=== PATIENT | female | born 1990 | race Caucasian/White ===

== ENCOUNTER 2022-07-03 18:14 | Emergency (ER) | payer OTHER, SELFPAY ==
[2022-07-03 18:16] VITALS: BP 128/79; PULSE 103; RESP 14; TEMP 36.7; O2SAT 99
--- NOTE | 2022-07-03 18:41 | ED.BACK ---
HPI - Back Pain/Injury General Chief Complaint: Back Pain/Injury Stated Complaint: neck stiffness, back Time Seen by Provider: 07/03/22 18:26 History of Present Illness HPI Narrative: 31-year-old female presents the emergency room with sudden onset of atraumatic neck and low back pain she states that she woke up this morning with stiff neck and was unable to look to her right. She said that throughout the day she started experiencing right lower back pain that radiated into her right lower leg. States the pain was so severe that she was unable to walk. Denies any saddle anesthesia, loss or changes of bowel bladder habits. Related Data Home Medications Medication Instructions Recorded Confirmed levothyroxine 150 mcg capsule 150 mcg PO DAILY 05/18/22 sertraline 150 mg capsule 150 mg PO DAILY 05/18/22 Allergies Allergy/AdvReac Type Severity Reaction Status Date / Time amoxicillin Allergy Intermediate Hives Verified 07/03/22 18:22 Review of Systems Review of Systems: CONSTITUTIONAL: Denies fever, chills, or sweats. EYES: Denies visual changes, redness, or discharge. ENT: Denies rhinorrhea, congestion, sore throat, or otalgia. CARDIOVASCULAR: Denies chest pain, palpitations, or edema. RESPIRATORY: Denies cough or dyspnea. GASTROINTESTINAL: Denies abdominal pain, nausea, vomiting, or diarrhea. GENITOURINARY: Denies dysuria or hematuria. SKIN: Denies rash or itching. MUSCULOSKELETAL: Reports low back pain, neck pain NEUROLOGIC: Denies headache, numbness, dizziness, or weakness. PSYCHIATRIC: Denies anxiety or depression. PMFSH Past Medical History Medical History Anxiety Headache History of Graves' disease History of radioactive iodine thyroid ablation 2012 Migraine Surgical History Surgical History [place] teeth removed Family History Family History Mother Depression Sibling Depression Grandparent Depression Lung cancer Alcoholism Exam Narrative: GENERAL: Well-appearing, well-nourished, no physical limitations, and in no acute distress. HEAD: Normocephalic, atraumatic. EYES: Conjunctivae normal, PERRLA and EOMI. NECK: Supple. CHEST: Clear to auscultation. No respiratory distress. No wheezes rales or rhonchi. No tenderness. HEART: Regular rate and rhythm. No murmur heard. Normal peripheral pulses. BACK: No cervical/thoracic/lumbar tenderness, step-offs, bony abnormality; tenderness to the superior and lateral sides of the right trapezius muscle, tenderness to the right thoracolumbar fascia, positive SLE to right lower extremity. Neurovascular is intact distally EXTREMITIES: Normal range of motion. No edema. No clubbing or cyanosis SKIN: Warm, dry, no rash. No noted wounds NEURO: No focal deficits. Alert and oriented x3. MAEW. CN's II-XI intact bilaterally, normal gait PSYCH: Cooperative. Normal mood and affect. Course Vital Signs Vital signs: Vital Signs Temperature 36.7 C 07/03/22 18:16 Pulse Rate 103 H 07/03/22 18:16 Respiratory Rate 14 07/03/22 18:16 Blood Pressure 128/79 07/03/22 18:16 Pulse Oximetry 99 07/03/22 18:16 Oxygen Delivery Room Air 07/03/22 18:16 Temperature 36.7 C 07/03/22 18:16 Pulse Rate 103 H 07/03/22 18:16 Respiratory Rate 14 07/03/22 18:16 Blood Pressure 128/79 07/03/22 18:16 Pulse Oximetry 99 07/03/22 18:16 Oxygen Delivery Room Air 07/03/22 18:16 Discharge Plan Discharge Clinical Impression: Acute neck pain, Low back pain Patient Disposition: Home, Self-Care Condition: Stable Instructions: Antibiotic Form, Back Pain (ED) Additional Instructions: Take medications as prescribed. Recommend applying heat to affected areas. Also recommend getting a pulsating massage device, and using for 5 to 10 minutes at a time as tolerated. May also supplemen
== END 2022-07-03 19:03 | disposition home or self-care (01) ==
PROVIDERS: Emergency Provider Nurse Practitioner Family; PCP Family Medicine
DX: M54.2 Cervicalgia (principal); M54.50 Low back pain, unspecified; F41.9 Anxiety disorder, unspecified
CPT/HCPCS: 96372; 99283; J1100

== ENCOUNTER 2024-07-04 10:26 | Outpatient (CLI) | payer OTHER, SELFPAY ==
[2024-07-04 10:52] LABS: Basophils Percent Auto 0.5 % (0.2-1.2); Eosinophils Absolute Auto 0.1 K/mm3 (0-0.3); Eosinophils Percent Auto 0.7 % (0-4.4); Hematocrit 40.2 % (37.0-47.0); Hemoglobin 13.8 g/dL (12.0-15.0); Immature Granulocyte Absolute 0.03 K/mm3 (0.00-0.031); Immature Granulocyte Percent A 0.3 % (0-0.5); Lymphocytes Absolute Auto 1.91 K/mm3 (0.9-3.2); Lymphocytes Percent Auto 21.6 % (18.3-44.2); Mean Corpuscular HGB Conc 34.3 g/dl (32-36); Mean Corpuscular Hemoglobin 30.9 pg (26-34); Mean Corpuscular Volume 89.9 fl (80-100); Mean Platelet Volume 9.6 fl (7.4-10.4); Monocytes Absolute Auto 0.5 K/mm3 (0.1-0.6); Monocytes Percent Auto 5.2 % (2.6-8.5); Neutrophils Absolute Auto 6.4 K/mm3 (1.3-6.7); Neutrophils Percent Auto 71.7 % (45.5-73.1); Platelet Count Result 277 k/mm3 (150-375); Red Blood Count 4.47 M/mm3 (4.2-5.4); Red Cell Distribution Width 13.7 % (11.5-14.5); White Blood Count 8.9 K/mm3 (4.5-10.0)
[2024-07-04 12:15] LABS: Vitamin D 25 Hydroxy 27.1 ng/mL
[2024-07-04 12:28] LABS: Thyroid Stimulating Hormone Reflex 0.262 uIU/mL (0.465-4.68)
[2024-07-04 13:20] LABS: Hemoglobin A1C 6.9 % (<5.7)
[2024-07-04 14:59] LABS: Free T4 Free Thyroxine Reflex 1.73 ng/dL (0.78-2.19)
[2024-07-04 16:28] LABS: Total Triiodothyronine (T3) 1.03 NG/ML (0.97-1.69)
[2024-07-10 02:43] LABS: Progesterone 6.5 ng/mL
[2024-07-10 03:19] LABS: DHEA-Sulfate 250 mcg/dL (19-237); FSH 3.3 mIU/mL; LH 5.4 mIU/mL; Prolactin 4.9 ng/mL
[2024-07-10 11:18] LABS: Testosterone Free 4.8 pg/mL (0.1-6.4); Testosterone Total 38 ng/dL (2-45)
== END 2024-07-04 10:27 | disposition home or self-care (01) ==
PROVIDERS: PCP Family Medicine; Visit Provider Nurse Practitioner Obstetrics & Gynecology
DX: L68.0 Hirsutism (principal)
CPT/HCPCS: 36415; 82306; 82627; 83001; 83002; 83036; 83498; 83525; 84144; 84146; 84402; 84403; 84439; 84443; 84480; 85025

== ENCOUNTER 2025-10-31 12:39 | Emergency (ER) | payer OTHER, SELFPAY ==
--- NOTE | ~2025-10-31 | CT_ITS ---
EXAMINATION: CT brain wo con COMPARISON: None HISTORY: COELLO TECHNIQUE: Axial images were obtained through the brain without IV contrast. CT scan performed using dose optimization techniques including the following automated exposure control; adjustment of mA and/or kV; use of iterative reconstruction technique. Automatic exposure control was used to reduce radiation dose. Permanent radiation dose record is archived to PACS. FINDINGS: No acute infarct or parenchymal hemorrhage. No abnormal mass or mass effect. No midline shift. No extra-axial fluid collections. No hydrocephalus. . Mastoid air cells unremarkable. Sinuses and orbits unremarkable. No acute fracture. No significant facial or scalp soft tissue swelling evident. No radiopaque foreign body is seen. Impression: 1.No acute intracranial abnormality. Reviewed, dictated and finalized at location P. [facility]URNER Impression: 1.No acute intracranial abnormality.
--- NOTE | ~2025-10-31 | XR_ITS ---
EXAMINATION: XR chest 2V 10/31/2025 13:41 INDICATION: Syncope PROCEDURE: 2 view chest COMPARISON: No prior studies for comparison. FINDINGS: The lungs are clear. The cardiomediastinal silhouette is within normal limits. There are no pleural effusions. There is no pneumothorax suspected. IMPRESSION: 1: NO ACUTE CARDIOPULMONARY DISEASE. Reviewed, dictated and finalized at location I. HT CLERK
[2025-10-31 12:45] VITALS: BP 135/64; PULSE 112; RESP 20; TEMP 36.4; O2SAT 99
--- NOTE | 2025-10-31 12:46 | ECG_ITS ---
Test Date: 2025-10-31 12:51:39 Measurements Intervals [place] Rate: 108 P: 64 ID: [id number] QRS: 62 QRSD: 77 T: 31 QT: 312 QTc: 419 Interpretive Statements SINUS TACHYCARDIA ABNORMAL ECG No previous ECG available for comparison Electronically Signed On 10-31-2025 13:03:53 PHARMACY BILLING ADJUDICATOR by Lonnie Nagel D.O.
[2025-10-31 13:30] VITALS: PULSE 88
[2025-10-31 13:58] VITALS: BP 105/83; BP 116/77; BP 118/86; PULSE 109; PULSE 123; PULSE 95
[2025-10-31] MEDS: KETOROLAC 30 MG/ML VIAL (*BKC) IV PUSH (14:01)
[2025-10-31] MEDS: SODIUM CHLORIDE 0.9% IV 1,000 ML 999 ML IV CONT (14:01)
[2025-10-31] MEDS: ONDANSETRON INJ 4 MG/2 ML VIAL IV PUSH (14:01)
[2025-10-31 14:02] LABS: BEDSIDEPREGUCG Negative (Negative)
--- NOTE | 2025-10-31 14:04 | ED.SYNCOPE ---
HPI - Syncope General Chief Complaint: Dizziness Stated Complaint: dizziness, fainted, +LOC, SOB, CP Time Seen by Provider: 10/31/25 13:14 History of Present Illness HPI narrative: Patient is a 35-year-old female who presents ER with syncope. Her last week she has had sinus congestion with sore throat and cough. She has had poor appetite but has been eating soup. Was in her kitchen today got lightheaded and lost consciousness. Reports subjective fever and chills. No dysuria or urinary frequency. Related Data Home Medications ?Medication ?Instructions ?Recorded ?Confirmed ?Last Taken ?Type levothyroxine 150 mcg capsule 150 mcg PO DAILY 05/18/22 07/04/24 Unknown History sertraline 150 mg capsule 150 mg PO DAILY 05/18/22 07/04/24 Unknown History aripiprazole 5 mg tablet (Abilify) 5 mg PO DAILY 07/04/24 07/04/24 Unknown History Allergies Allergy/AdvReac Type Severity Reaction Status Date / Time amoxicillin Allergy Intermediate Hives Verified 10/31/25 12:54 Review of Systems Review of Systems: All systems reviewed & are unremarkable except as noted in HPI and below Constitutional: Constitutional: Reports no additional constitutional complaints ENT: Reports system reviewed and no additional complaints, except as documented Cardiovascular: Cardiovascular: Reports no additional cardiovascular complaints Respiratory: Respiratory: Reports no additional respiratory complaints Gastrointestinal: Gastrointestinal: Reports no additional gastrointestinal complaints Neurologic: Reports system reviewed and no additional complaints, except as documented [facility] Past Medical History Medical History Anxiety Headache History of Graves' disease History of radioactive iodine thyroid ablation 2011 Migraine Surgical History Surgical History [place] teeth removed Family History Family History Mother Depression Sibling Depression Grandparent Depression Lung cancer Alcoholism Social History Social History Smoking status: Smoker, status unknown Alcohol intake: current Substance use: current Substance use type: marijuana Lack of Transportation: No Lack of Food: Never True Current Housing: I Have Housing Concerned About Future Housing: No Difficulty Paying Gas/Electric Bills: No Difficulty Paying for Meds: No Currently Unemployed: No Education: Associate Degree Living arrangements: with family Occupation/Education: occupation Gender identity (if verbalized by the patient): Female Spiritual care concerns: No Exam Narrative: GENERAL: Well-appearing, well-nourished, and in no acute distress. HEAD: Normocephalic, atraumatic. ENT: Mucous membranes moist. TM's normal CHEST: Clear to auscultation. No respiratory distress. HEART: Regular rate and rhythm. Normal peripheral pulses. ABDOMEN: Soft, nontender, nondistended. EXTREMITIES: Normal range of motion. No edema. SKIN: Warm, dry, no rash. NEURO: Alert and oriented x3. PSYCH: Normal mood and affect. Course Course Emergency Course: Headache resolved with Toradol/Reglan/Benadryl. She has been hydrated. We discussed imaging and lab results. Appropriate for discharge home. Vital Signs Vital signs: Vital Signs Temperature 97.6 F 10/31/25 12:45 Pulse Rate 112 H 10/31/25 12:45 Respiratory Rate 20 10/31/25 12:45 Blood Pressure 135/64 10/31/25 12:45 Pulse Oximetry 99 10/31/25 12:45 Oxygen Delivery Room Air 10/31/25 12:45 Temperature 97.6 F 10/31/25 12:45 Pulse Rate 100 10/31/25 15:52 Respiratory Rate 20 10/31/25 15:52 Blood Pressure 107/72 10/31/25 15:52 Pulse Oximetry 100 10/31/25 15:52 Oxygen Delivery Room Air 10/31/25 12:45 Discharge Plan Discharge Clinical Impression: Syncope, URI (upper respiratory infection), Generalized headache Patient Disposition: Home Condition: Stable Instructions: Upper Respiratory Infection (ED), General Headache (ED) Additional Instructions: Try to stay well hydrated at home. Please return to the emergency department if you develop worsening of your headache or a new headache which is severe, associated with vision changes, associated with neck stiffness or fever, or if it is different from any other headache that you have had before. Return to the emergency department if you develop numbness, weakness or tingling or problems with coordination, or if you develop severe nausea and vomiting and are unable to keep down fluids at home. Is also found that your blood sugar was slightly elevated. Follow-up with your PCP for further evaluation. Patient Language: Telugu Prescriptions: New naproxen 375 mg tablet 375 mg PO BID Qty: 14 0RF ondansetron 4 mg tablet,disintegrating 4 mg PO Q6H PRN (Reason: nausea and vomiting) Qty: 10 0RF No Action aripiprazole [Abilify] 5 mg tablet 5 mg PO DAILY sertraline 150 mg capsule 150 mg PO DAILY levothyroxine 150 mcg capsule 150 mcg PO DAILY Follow-up/Referrals: Harms,Gilmer Sultana M.D. [Primary Care Provider] - 1 Week [facility] Differential Diagnosis Differential Diagnosis: Subarachnoid subdural meningitis, digit headache, vertigo, arrhythmia Lab Data [facility] Lab Attestation statement: I personally reviewed the patient's lab results. 10/31/25 13:51 10/31/25 13:51 Labs: Lab Results 10/31/25 10/31/25 Range/Units 13:51 13:59 WBC 8.6 (4.5-10.0) K/mm3 RBC 4.89 (4.2-5.4) M/mm3 Hgb 14.9 (12.0-15.0) g/dL Hct 43.8 (37.0-47.0) % MCV 89.6 (80-100) fl MCH 30.5 (26-34) pg MCHC 34.0 (32-36) g/dl RDW 13.2 (11.5-14.5) % Plt Count 221 (150-375) k/mm3 MPV 9.5 (7.4-10.4) fl Immature Gran % (Auto) 0.2 (0-0.5) % Neut % (Auto) 68.0 (45.5-73.1) % Lymph % (Auto) 25.8 (18.3-44.2) % [place] % (Auto) 4.7 (2.6-8.5) % Eos % (Auto) 0.8 (0-4.4) % Baso % (Auto) 0.5 (0.2-1.2) % Lymph # (Auto) 2.21 (0.9-3.2) K/mm3 [place] # (Auto) 0.4 (0.1-0.6) K/mm3 Eos # (Auto) 0.1 (0-0.3) K/mm3 Baso # (Auto) 0.0 (0.0-0.1) K/mm3 Abs Immat Gran (auto) 0.02 (0.00-0.031) K/mm3 Absolute Neuts (auto) 5.8 (1.3-6.7) K/mm3 Absolute Nucleated RBC 0.000 (0.0-0.012) K/mm3 Nucleated RBC % 0.0 (0.0-0.2) % Sodium 134 L (137-145) mmol/L Potassium 4.3 (3.4-5.0) mmol/L Chloride 106 (98-107) mmol/L Carbon Dioxide 22 (22-30) mmol/L Anion Gap 6 (4-12) mmol/L BUN 14 (7-17) mg/dL Creatinine 0.74 (0.7-1.0) mg/dL Estim Creat Clear Calc 85 ml/min Estimated GFR > 60 (59 - ) Glucose 122 H (65-110) mg/dL Calcium 9.7 (8.4-10.2) mg/dL Total Bilirubin 0.6 (0.2-1.3) mg/dL AST 29 (14-36) U/L ALT 18 (6-35) U/L Alkaline Phosphatase 64 (38-126) U/L Total Protein 8.6 H (6.3-8.2) g/dL Albumin 4.7 (3.5-5.1) g/dL Urine Color Yellow (Yellow) Urine Appearance Clear (Clear) Urine pH 5.5 (5.0-9.0) Ur Specific Elizabeth 1.022 (1.001-1.035) Urine Protein Negative (Negative) mg/dL Urine Glucose (UA) 2+ H (Negative) mg/dL Urine Ketones Negative (Negative) mg/dL Ur Blood (Man) Negative (Negative) Urine Nitrate Negative (Negative) Urine Bilirubin Negative (Negative) Urine Urobilinogen 0.2 (<2.0) mg/dL Leukocyte Esterase Rfl Negative (Negative) LAM/UL POC Urine HCG, Qual Negative (Negative) Imaging Data Radiologist's impression: ITS Impressions Chest X-Ray 10/31/25 13:43 IMPRESSION: 1: NO ACUTE CARDIOPULMONARY DISEASE. Head CT 10/31/25 15:09 Impression: 1.No acute intracranial abnormality. ECG Data EKG #1: ECG completion date: 10/31/25 ECG completion time: 12:51 tachycardia (108), sinus rhythm, no ectopy, no ST changes, normal QRS, normal QT and NL axis
[2025-10-31 14:12] LABS: Hematocrit 43.8 % (37.0-47.0); Hemoglobin 14.9 g/dL (12.0-15.0); Immature Granulocyte Percent A 0.2 % (0-0.5); Lymphocytes Absolute Auto 2.21 K/mm3 (0.9-3.2); Mean Corpuscular HGB Conc 34.0 g/dl (32-36); Mean Corpuscular Hemoglobin 30.5 pg (26-34); Mean Corpuscular Volume 89.6 fl (80-100); Nucleated Red Blood Cells Absolute Auto 0.000 K/mm3 (0.0-0.012); Nucleated Red Blood Cells Perc 0.0 % (0.0-0.2); Platelet Count Result 221 k/mm3 (150-375); Red Blood Count 4.89 M/mm3 (4.2-5.4); White Blood Count 8.6 K/mm3 (4.5-10.0)
[2025-10-31 14:16] LABS: Alanine Aminotransferase 18 U/L (6-35); Albumin Level 4.7 g/dL (3.5-5.1); Alkaline Phosphatase 64 U/L (38-126); Anion Gap 6 mmol/L (4-12); Aspartate Amino Transferase 29 U/L (14-36); Bilirubin,Total 0.6 mg/dL (0.2-1.3); Blood Urea Nitrogen 14 mg/dL (7-17); Calcium 9.7 mg/dL (8.4-10.2); Carbon Dioxide 22 mmol/L (22-30); Chloride 106 mmol/L (98-107); Estimated CRCL calculation 85 ml/min; Estimated Glomerular Filt Rate > 60; Glucose 122 mg/dL (65-110); Potassium 4.3 mmol/L (3.4-5.0); Sodium 134 mmol/L (137-145); Total Protein 8.6 g/dL (6.3-8.2)
[2025-10-31 14:28] LABS: Add Urine Microscopic? NO; Appearance Urine Clear (Clear); Glucose Urine UA 2+ mg/dL (Negative); Leukocyte Esterase Ur Negative LEU/UL (Negative); Nitrate Urine Negative (Negative); Specific Grav Ur 1.022 (1.001-1.035)
[2025-10-31] MEDS: METOCLOPRAMIDE HCL INJ 10 MG/2 ML VIAL IV PUSH (15:16)
[2025-10-31 15:52] VITALS: BP 107/72; PULSE 100; RESP 20; O2SAT 100
[2025-10-31 17:10] VITALS: BP 102/63; PULSE 94; RESP 16; O2SAT 97
== END 2025-10-31 17:10 | disposition home or self-care (01) ==
PROVIDERS: Emergency Provider Emergency Medicine; PCP Family Medicine
DX: R55 Syncope and collapse (principal); J06.9 Acute upper respiratory infection, unspecified; R51.9 Headache, unspecified; F41.9 Anxiety disorder, unspecified; E05.00 Thyrotoxicosis with diffuse goiter without thyrotoxic crisis or storm
CPT/HCPCS: 36415; 70450; 71046; 80053; 81003; 81025; 85025; 93005; 96361; 96374; 96375; 99284; J1200; J1885; J2405; J2765; J7030